=== PATIENT | female | born 1935 | race Caucasian/White ===

== ENCOUNTER 2025-10-14 08:45 | Outpatient (AMB) | payer OTHER, SELFPAY ==
--- NOTE | 2025-10-14 08:52 | A.OFFPC_ITS ---
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 Fall and Subsequent Hip Pain: The patient had a fall at a [facility] about six weeks ago. A week after the fall, the patient went to the emergency room due to hip pain. X-rays performed in the emergency room were negative for fractures. The patient has been using a cane for ambulation for the past six weeks and reports pain in the right leg when walking too much. The patient declined physical therapy. Heart Murmur: The patient has a known history of a heart murmur diagnosed by a previous physician, Dr. Ashley. The patient's llinstbf-bn-ekg believes a prior workup, including an echocardiogram, was performed, but is uncertain of the details. Records from the previous provider have been requested. Health Maintenance: The patient reports having mammograms every year and has had Pap smears in the ast, with results reportedly being okay. The patient has a history of a colonoscopy, but the year is unknown. The patient has never had a DEXA scan to screen for osteoporosis. A prior workup for diabetes was negative. The patient declines influenza vaccinations. Overactive Bladder: The patient takes trospium for an overactive bladder. 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 - Functional Status: The patient has bee n using a cane to walk for the past six weeks due to hip pain and gait instability following a fall. - Living Situation: The patient attends a senior por[facility] and was accompanied to the visit by the patient's nucargfo-sv-lns. - Driving: The patient still drives. Diagnostic Results: - Hip X-ray (approximately 5 weeks ago): No fractures identified. - Previous Mammograms: Results reported as okay. - Previous Pap smears: Results reported as okay. - Previous Diabetes workup: Negative for diabetes after an 8-hour hospital observation. Past Medical History - Heart murmur, diagnosed by a previous provider. - Overactive bladder, managed with trosp ium. - Fall approximately six weeks prior to visit, resulting in hip pain. - Denies history of breast cancer, diabe valery, hypertension, or epilepsy. - Hospitalization: Overnight stay after cholecystectomy and an 8-hour hospital stay for a diabetes workup, which was negative. Health Maintenance - Mammogram: Patient reports having jose g al mammograms with normal results. - Pap smear: Patient reports a history o f Pap smears. - Colonoscopy: Patient has had a prior c olonoscopy, though the year is unknown. - Osteoporosis Screening: Patient has ne aleks had a bone density scan; a referral for a DEXA scan was ordered. - Immunizations: Patient declines the in fluenza vaccine. [facility] Medical History (Updated 10/14/25 @ 10:08 by Pradip Shelton MD) Xerosis cutis Heart murmur Unstable gait Overactive bladder History of fall Post-menopausal Class 1 obesity Family History Mother No problems noted. Father No problems noted. Social History Housing: House Patient Tobacco Use Status: Never used Tobacco e-Cigarette/Vaping Use: Never Used service: No Current occupational status: retired Cognitive needs: Yes (cane) Hearing needs: Yes (bilateral hearing aid) Vision needs: Yes (glasses) Questionnaire Thrive Questionnaire Date Thrive assessed: 10/14/25 AUDIT C Alcohol Use Questionnaire (AUDIT-C) 1. How often do you have a drink containing alcohol?: Monthly or less 2. How many drinks containing alcohol do you have on a typical day when you are drinking?: 1 or 2 Total Score: 1 ALEXIS-7 AMB Questionnaire ALEXIS-7 Date ALEXIS - 7 assessed: 10/14/25 Source: Developed by Drs. Vernon Grider, Ce Santoro, Payam Hurley and colleagues, with an educational vish from [employer]. Review of Systems Narrative Review of Systems - Musculoskeletal: Reports right hip pain with a rubbing sensation, aggravated by ambulation. - Neurological: Reports gait instability and has been using a cane for six weeks. - Integumentary: Reports dry skin. - Genitourinary: Reports overactive bladder. - Gastrointestinal: Denies constipation, reports normal bowel movements. - Constitutional: Reports poor sleep. 10-point ROS reviewed and negative except as noted in HPI Physical exam (Primary Care) Vital Signs: Last Vital Signs Temp 98.2 F 10/14/25 09:01 Pulse 67 10/14/25 09:01 BP 170/98 H 10/14/25 09:01 Pulse Ox 97 10/14/25 09:01 Oxygen Delivery Method Room Air 10/14/25 09:01 BMI result Body Mass Index 30.5 Tobacco/Smoking Status: Tobacco use Status Tobacco use date assessed 10/14/25 10/14/25 08:53 Patient Tobacco Use Status Never used Tobacco 10/14/25 09:05 e-Cigarette/Vaping Use Never Used 10/14/25 08:53 Thrive Assessment: Date of Thrive Assessment Date Thrive assessed 10/14/25 10/14/25 08:53 Narrative Physical Exam General: Well-appearing, in no acute distress. Vital signs: Within normal limits. HEENT: Normocephalic, atraumatic. PERRLA, EOMI. Conjunctiva clear, sclera anicteric. Oropharynx clear, mucous membranes moist. TMs intact bilaterally. Neck: Supple, no lymphadenopathy, no thyromegaly, no JVD or carotid bruits. Cardiovascular: RRR, normal S1/S2, heart murmur noted. Peripheral pulses 2+ and symmetric. No edema. Respiratory: Lungs clear to auscultation bilaterally, no wheezes, rales, or rhonchi. Normal effort. Abdomen: Soft, non-tender, non-distended. Normoactive bowel sounds. No hepatosplenomegaly, no masses. Scars from gallbladder surgery noted. MSK: Full range of motion, no joint swelling or deformity. Normal gait. Uses a cane for ambulation due to hip pain. Varicose veins noted. Skin: Warm, dry, intact. No rashes, lesions, or pallor. Skin is dry. Neuro: Alert and oriented x3. Cranial nerves II-XII intact. Strength 5/5 throughout. Sensation intact. Reflexes 2+ symmetric. Normal coordination and gait. Psych: Appropriate mood and affect. Normal judgment and insight. Office Procedures Flu Questionnaire Does the patient have a severe egg allergy?: No Does the patient have severe life threatening allergies?: No Does the patient have a fever or illness today?: No Has the patient ever had Guillain-[place] Syndrome?: No Has the patient ever had any past reaction to a flu shot?: No Flu Questionnaire Does the patient have a severe egg allergy?: No Does the patient have severe life threatening allergies?: No Does the patient have a fever or illness today?: No Has the patient ever had Guillain-[place] Syndrome?: No Has the patient ever had any past reaction to a flu shot?: No Immunizations Fluarix (PF) 45 mcg (15 mcg x 3)/0.5 mL IM syringe Performing Provider: Pradip Shelton MD Performing Location: [facility] Documented (not given) by: Karen Moya CMA on 10/14/25 09:13 Reason Not Given: Allergic to Vaccine Component Fluarix (PF) 45 mcg (15 mcg x 3)/0.5 mL IM syringe Performing Provider: Pradip Shelton MD Performing Location: [facility] Documented (not given) by: Karen Moya CMA on 10/14/25 09:49 Reason Not Given: Allergic to Vaccine Ingredient Coding Level of Care Code New Pt Level 4 (53566) Diagnoses Class 1 obesity E66.811 Overactive bladder N32.81 Unstable gait R26.81 Heart murmur R01.1 Xerosis cutis L85.3 Assessment & Plan Assessment & Plan (1) Class 1 obesity: Code(s): E66.811 - Obesity, class 1 Category: Medical (2) Overactive bladder: Code(s): N32.81 - Overactive bladder Category: Medical (3) Unstable gait: Code(s): R26.81 - Unsteadiness on feet Category: Medical (4) Heart murmur: Code(s): R01.1 - Cardiac murmur, unspecified Category: Medical (5) Xerosis cutis: Code(s): L85.3 - Xerosis cutis Category: Medical Plan Consent The patient and the patient's rlbunbdd-on-dne were present and consented to the plan of care, including comprehensive lab work and a referral for a bone density scan. Patient was informed and verbally consented to the use of an ambient scribe for clinic note documentation during this visit. Plan 1. Establishment Of Care - Ordered comprehensive lab work including CBC, CMP, thyroid panel, vitamin B12, folate, vitamin D, hemoglobin A1c, lipid panel, and urinalysis to establish a baseline of the patient's health. - Will obtain medical records from the patient's previous physician, Dr. Ashley. - Scheduled a follow-up appointment in two weeks to review all results. 2. Fall With Subsequent Hip Pain And Gait Instability - Patient declined physical therapy at this time. - Initiated documentation to obtain a handicap parking placard due to difficulty walking and gait instability. - Ordered a DEXA scan to screen for osteoporosis as a potential contributing factor to fall risk. 3. Heart Murmur - Will await medical records from the patient's prior physician to review any previous workup, such as an echocardiogram, before considering further evaluation. 4. Xerosis Cutis - A moisturizing lotion will be sent to the patient's pharmacy. Discussion Notes I introduced myself to the patient and the patient's tmevvxgi-gr-cvc and discussed the plan to establish care. I explained that I would order a comprehensive set of labs to get an overall picture of the patient's health. We discussed the patient's fall from six weeks ago and ongoing difficulty with walking, and I explained the need for an osteoporosis screening with a bone scan, for which I provided a referral. The patient declined physical therapy. I informed the patient and family that we would start the process for a handicap parking placard. During the exam, I noted a heart murmur and discussed with the patient that this was a previously known finding. I communicated the importance of obtaining medical records from the prior physician to review any previous workup. For the patient's dry skin, I recommended a moisturizing lotion which I will send to the patient's pharmacy. I arranged for a follow-up visit in two weeks to review all lab and imaging results. Patient Instructions - Please go to the lab to have your blood drawn today. - A referral has been made for you to get a bone density scan at [facility]. - Please use the moisturizing lotion for your dry skin, which will be sent to [facility] pharmacy. - Our office will begin the paperwork for a handicap parking sticker for your car. - Please return to the clinic for a follow-up visit in two weeks to review your test results. Medical Decision Making The patient is an 89-year-old individual presenting to [facility] primary care. The patient's primary complaints are related to a fall six weeks ago, which has led to persistent hip pain, difficulty walking, and reliance on a cane. An emergency room visit after the fall ruled out an acute fracture, but given the patient's age and mechanism of injury, an osteoporosis screening via DEXA scan is warranted to assess for underlying bone density issues. The patient's gait instability and difficulty with ambulation justify the need for a handicap placard to improve safety and accessibility. The physical exam revealed a heart murmur, which is reportedly a known diagnosis. Before considering additional cardiac workup, it is prudent to obtain and review prior medical records from Dr. Ashley, as an echocardiogram may have already been performed. To establish a comprehensive health baseline, a full panel of labs was ordered, including a complete blood count, comprehensive metabolic panel, thyroid studies, moody vitamin levels, a hemoglobin A1c to screen for diabetes, and a lipid panel. Minor issues such as xerosis will be managed symptomatically with a prescribed moisturizer. The plan is for a close follow-up in two weeks to review all diagnostic findings and further refine the long-term management plan. Total Time Statement 30 min Total time spent caring for the patient today includes pre-visit chart review, documentation, review of laboratory and diagnostic imaging results, medication reconciliation, medically necessary evaluation, counseling on diagnoses, care coordination, ordering appropriate tests and medications, review of tests performed by other providers, reporting test results to the patient, and communication with other healthcare providers. Orders: Orders Complete Blood Count Auto Diff Today Z13.9 - Encounter for screening, unspecif ied Hepatitis B Surface Antigen Today Z13.9 - Encounter for screening, unspecified Hepatitis C Antibody Today Z13.9 - Encounter for screening, unspecified HIV Ab/Ag Today Z13.9 - Encounter for screening, unspecified UA CC w/rflx Micro + Cult Today Z13.9 - Encounter for screening, unspecified Lipid Panel Today Z13.9 - Encounter for screening, unspecified Vitamin B12 and Folate Today Z13.9 - Encounter for screening, unspecified Magnesium Today Z13.9 - Encounter for screening, unspecified XR DEXA axial skeleton Today Z78.0 - Asymptomatic menopausal state, Z91.81 - History of falling Influenza [id number] Immunization Today Z23 - Encounter for immunization Influenza [id number] Immunization Today Z23 - Encounter for immunization Syphilis Screen Today Z13.9 - Encounter for screening, unspecified Comprehensive Met. Panel Today Z13.9 - Encounter for screening, unspecified TSH reflex Free T4 Today Z13.9 - Encounter for screening, unspecified Hemoglobin A1c Today Z13.9 - Encounter for screening, unspecified Vitamin D 1,25 dihydroxy Today Z13.9 - Encounter for screening, unspecified Hepatitis B Surface Antibody Today Z13.9 - Encounter for screening, unspecified
[2025-10-14 09:01] VITALS: BP 170/98; PULSE 67; TEMP 36.8; O2SAT 97; BMI 30.5
--- OUTSIDE RECORDS SUMMARY | 2025-10-14 10:02 | XMS_ITS | Clinical Summary ---
Author Organization [facility] Address [address] [id number] Care Team Providers Care [employer] Name Role Phone Froylan Avelar MD Primary Care Provider [phone] Allergies Active Allergy Reactions Criticality Noted Date Comments Amoxicillin 07/10/2021 Donepezil 01/15/2020 edema Egg White (Egg Protein) 01/07/2020 Mupirocin Itching 12/02/2020 Other 03/10/2021 Medications Medication Sig Dispensed Refills Start Date End Date Status simvastatin (ZOCOR) tablet 20 mg 0 09/26/2020 Active trospium (SANCTURA) 20 MG tablet Take 20 mg by mouth. 0 09/13/2020 Active valsartan (DIOVAN) tablet 80 mg Take 1 tablet by mouth daily. 0 12/03/2020 Active rosuvastatin (CRESTOR) tablet 10 mg Take 10 mg by mouth. 0 12/02/2020 Active Phosphatidylserine 100 MG CAPS Take 100 mg by mouth. 0 Active famotidine (PEPCID) 20 MG tablet Take 20 mg by mouth. 0 Active aspirin 81 MG EC tablet Take 81 mg by mouth. 0 Active amLODIPine (NORVASC) tablet 5 mg Take 1 tablet by mouth daily. 0 05/08/2021 Active Family History Medical History Relation Name Comments Hypertension Mother Relation Name Status Comments Mother Social History Tobacco Use Types Packs/Day Years Used Date Smoking Tobacco: Never Smokeless Tobacco: Never Alcohol Use Standard Drinks/Week Comments Yes 4 (1 standard drink = 0.6 oz pur e alcohol) Sex and Gender Information Value Date Recorded Sex Assigned at Not on file Gender Identity Not on file Sexual Orientation Not on file Job Start Date Occupation Industry Not on file Not on file Not on file Last Filed Vital Signs Vital Sign Reading Time Taken Comments Blood Pressure - - Pulse - - Temperature - - Respiratory Rate - - Oxygen Saturation - - Inhaled Oxygen Concentration - - Weight 82.1 kg (181 lb) 07/16/2022 1:45 PM EDT Height 163 cm (5' 4.17 ) 07/16/2022 1:45 PM EDT Body Mass Index 30.9 07/16/2022 1:45 PM EDT Plan of Treatment Health Maintenance Due Date Last Done Comments Depression Screening 1948 BMI Counseling 1954 Preventative Health Evaluation 1954 DTap / Tdap / Td (1 - Tdap) 1955 Shingrix-Zoster Vaccine (1 o f 2) 1986 Fall Risk Assessment 2001 Osteoporosis Screening (DEXA Scan) 2001 Pneumococcal Vaccine (1 of 1 - PCV) 2001 RSV Adult > 60+ Yrs or (1 - 1-dose 75+ series) 2011 COVID-19 Vaccine (3 - 2024-2 6 season) 2025 04/09/2021, 03/19/2021 Influenza Vaccine (#1) 2025 Hepatitis B Vaccines Aged Out No long er eligible based on patient's age to complete this topic RSV Ped < 20 months Aged Out No longe r eligible based on patient's age to complete this topic Care Teams [employer] Relationship Specialty Start Date End Date Froylan Avelar MD [address] [place] [id number] PCP - [facility] 08/29/23
--- OUTSIDE RECORDS SUMMARY | 2025-10-14 10:02 | XMS_ITS | Clinical Summary ---
Author Organization [facility] Address [address] [place] [id number] Phone Care Team Providers Care Rodeo Clown Name Role Phone Unknown, Unknown Primary Care Provider Tamara rojas Allergies Active Allergy Reactions Criticality Noted Date Comments Amoxicillin 01/07/2020 Chrom-Vit B [id number] 2019 Donepezil 01/15/2020 edema Egg 01/07/2020 Medications cyanocobalamin, vitamin B-12, 1000 MCG tablet Take 1 tablet (1,000 mcg total) by mouth daily. 90 tablet 3 01/07/2020 Active trospium (SANCTURA) 20 mg tablet Take 20 mg by mouth 2 (two) times a day. 09/13/2020 Active rosuvastatin (CRESTOR) 10 MG tablet Take 10 mg by mouth daily. 12/02/2020 Active valsartan (DIOVAN) 80 MG tablet 12/03/2020 Active aspirin 81 MG EC tablet Take 81 mg by mouth daily. Active Active Problems Problem Noted Date Diagnosed Date Nonrheumatic aortic valve stenosis 03/14/2021 Impaired fasting glucose 12/19/2020 Memory problem 01/07/2020 Urge incontinence 01/07/2020 Other hyperlipidemia 01/07/2020 Benign essential hypertension 01/07/2020 History of breast cancer 01/07/2020 History of endometrial cancer 01/07/2020 Immunizations Immunization Administration Dates Next Due COVID-19 (Pre-09/16) Pfizer Vaccine, mRNA, PF ,03/19/2021 Family History Medical History Relation Comments Cancer Father Unknown cancer p er patient Coronary artery disease Neg Hx Diabetes mellitus Neg Hx Relation Status Comments Father Social History Tobacco Use Types Packs/Day Years Used Date Smoking Tobacco: Never Smokeless Tobacco: Never Alcohol Use Standard Drinks/Week Comments Yes 0 (1 standard drink = 0.6 oz pur e alcohol) 1-2 drinks, every other night Education Answer Date Recorded Are you interested in more education? Not on elvia e 03/22/2023 Are you concerned about learning? Not on file 03/22/2023 No 03/22/2023 No 03/22/2023 Digital Access Answer Date Recorded No 04/20/2023 No 04/20/2023 No 04/20/2023 Reliable internet access at home? Not on file 04/20/2023 Device with a working camera? Not on file Comments Unknown Sex and Gender Information Value Date Recorded Sex Assigned at Not on file Legal Sex Female 10:48 AM EDT Gender Identity Not on file Sexual Orientation Not on file Last Filed Vital Signs Vital Sign Reading Time Taken Comments Blood Pressure 180/86 03/10/2021 1:32 PM EDT Pulse 90 09/26/2020 1:53 PM EST Temperature 37.3 C (99.2 F) 09/26/2020 1:53 PM EST Respiratory Rate 16 09/26/2020 1:53 PM EST Oxygen Saturation 96% 09/26/2020 1:53 PM EST Inhaled Oxygen Concentration - - Weight 90.7 kg (200 lb) 12/19/2020 8:31 AM EST Height 156 cm (5' 1.42 ) 12/19/2020 8:31 AM EST Body Mass Index 37.28 12/19/2020 8:31 AM EST Plan of Treatment Health Maintenance Due Date Last Done Comments Adult Td,Tdap Booster 1936 DEPRESSION SCREENING 1948 PNEUMOCOCCAL VACCINES (50+ years) (1 of 1 - PCV) 1986 ZOSTER VACCINES (1 of 2) 1986 OSTEOPOROSIS SCREENING INITI AL (ONE-TIME) 2001 RSV VACCINE (1 - 1-dose 75+ series) 2011 CREATININE LEVEL 09/15/2021 09/15/2020 POTASSIUM LEVEL 09/15/2021 09/15/2020 INFLUENZA VACCINE (#1) 2025 COVID-19 VACCINE (3 - 2024-2 6 season) 2025 04/09/2021, 03/19/2021 HEPATITIS A VACCINES Aged Out No long er eligible based on patient's age to complete this topic HIB VACCINES Aged Out No longer eligi ble based on patient's age to complete this topic MENINGOCOCCAL VACCINES (ACWY) Aged Out No longer eligible based on patient's age to complete this topic MENINGOCOCCAL VACCINES (B) Aged Out N o longer eligible based on patient's age to complete this topic Medical Devices Not on file Procedures Procedure Name Priority Date/Time Associated Diagnosis Comments COMPREHENSIVE METABOLIC PANEL (CMP) Routine 09/15/2020 8:04 AM EDT Benign essential hypertension from Last 3 Months or Most Recently Relevant to Health Maintenance Results * (ABNORMAL) Comprehensive metabolic panel (09/15/2020 8:04 AM EDT) SODIUM 140 133 - 146 mmol/L [facility] POTASSIUM 4.4 3.3 - 5.1 mmol/L [facility] CHLORIDE 106 96 - 108 mmol/L [facility] CO2 25 21 - 35 mmol/L [facility] BUN 20(H) 6 - 19 mg/dL [facility] CREATININE 0.80 0.5 - 1.5 mg/dL [facility] GLUCOSE 112(H) 70 - 99 mg/dL [facility] ALBUMIN 4.1 3.9 - 4.8 g/dL [facility] TOTAL PROTEIN 6.9 6.5 - 8.0 g/dL [facility] CALCIUM 9.6 8.4 - 10.3 mg/dL [facility] ALKALINE PHOSPHATASE 94 39 - 117 U/L [facility] TOTAL BILIRUBIN 0.4 0.0 - 1.2 mg/dL [facility] AST 22 0 - 37 U/L [facility] ALT 15 0 - 40 U/L [facility] GLOBULIN 2.8 1 - 4.8 g/dL [facility] EGFR 68 >59 mL/min/1.7 3m2 [facility] Comment:Estimated glomerular filtration rate calculated using the CKD-EPI equation. ANION GAP 13 10 - 20 mmol/L [facility] Blood 09/15/2020 8:04 AM EDT 09/15/2020 8:10 AM EDT us Jameel Fernandez MD LAB BLOOD BKR ORDERABLES Final R esult [facility] [address] [place] [address] from Last 3 Months or Most Recently Relevant to Health Maintenance Insurance [employer] Care Teams [employer] Clown Relationship Specialty Start Date End Date Unknown, Unknown, PCP - General 10/15/23 Additional Source Comments The information contained in this document represents components of the legal health record. It is not the complete legal health record.[facility]
--- OUTSIDE RECORDS SUMMARY | 2025-10-14 10:02 | XMS_ITS | Data Portability ---
Author Organization [place] - [facility], Allergy Address [address] [place] [phone] Assessment Encounter Date Assessment Date Assessment LastModified by Organization Details LastModified Time 10/08/2024 10/08/2024 Patient called this morning with a question. As we talked, I suspected that one of her aids wasn't working and possibly blocked with wax. I had her come in and the right aid was blocked (stuffed!) with wax. Sounded great after I cleaned it. Left aid was almost completely blocked. Reinstructed on how to change wax guards and domes; she has extras of both. Also encouraged more consistent use of hearing aids. Warranty expires 10-28-26 Sarah Rodriguez MA, CCC-Reyes santos Not available 10/08/2024 15:45:48 Plan of Treatment Reminders Order Date Submit Date Provider Last Modified By Organization Details Last Modified Time Details Appointments None record ed. Lab None record ed. Referral None record ed. Procedures None record ed. Surgeries None record ed. Imaging None record ed. Medication Orders None record ed. Patient TargetsNo targets recorded. Patient InstructionsNo instructions recorded. Reason for Referral None Reported. 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 Medical Equipment None Reported. Allergies Allergen ID Allergen Name Allergen Category Reaction Reaction Severity Criticality Documentation Date Start Date Code Code System Note Provider Name and Address Organization Details Recorded Time 90760 amoxicill in medicatio n Not available Not available Not available 04/07/2024 723 RxNorm React ion: Itch, Low blood press ure; Not Available [facility] 4 00:57:47 Medications Name Sig Start Date Stop Date Status Note LastModified by Organization Details LastModified Time fluconazol e 150 mg tablet TAKE 1 TABLET BY MOUTH ONCE active Not Available Not Available No t Available sulfametho xazole 800 mg-trimeth oprim 160 mg tablet TAKE 1 TABLET BY MOUTH EVERY 12 HOURS FOR 5 DAYS active Not Available Not Available No t Available hydrochlor othiazide 25 mg tablet TAKE 1 TABLET BY MOUTH DAILY active Not Available Not Available No t Available Enulose 10 gram/15 mL oral solution TAKE 30 ML BY MOUTH TWICE DAILY active Not Available Not Available No t Available Arthritis Pain Reliever 650 mg tablet,ext ended release active Medicatio n ID: [id number] Br and Name: Arthritis Pain Reliever Send Method: E-Prescri bed Subs Allowed: subs OK Medica tionGener icName: Arthritis Pain Reliever Not Available Not Available Not Available solifenaci n 5 mg tablet TAKE 1 TABLET BY MOUTH EVERY DAY DIRECTED TAKE 1 TABLET BY MOUTH EVERY DAY active Not Available Not Available No t Available trospium ER 60 mg capsule,ex tended release 24 hr TAKE 1 CAPSULE BY MOUTH DAILY active Not Available Not Available No t Available Vitals None Recorded Social History None recorded. Functional Status None recorded. Mental Status None recorded. Family History Nothing Reported. Medical History No medical history recorded. Gynecological HistoryNo gynecological history recorded. Obstetrics History GPAL:G 0 P 0 0 0 0 Past Encounters Encounter ID Performer Location Encounter Start Date Encounter Closed Date Diagnosis/Indication Diagnosis SNOMED-CT Code Diagnosis ICD10 Code Diagnosis IMO Codes Diagnosis Note [id number] SARAH RODRIGUEZ MA, CCC-A [place] [facility] [address] [place] [address] KENN VELEZ [id number] 10/08/2024 12:54:19 10/09/2024 07:28:38 Sensorineural hearing loss 84807511 H90.5 Health Concerns Section Related Observation LastModified by Organization Detai ls LastModified Time None Recorded Concern Status LastModified by Organization Details LastModified Time None Recorded Advance Directives Directive None Recorded Payers Insurance Date Sequence Insurance Name Policy Number Policy Clemente Covered Member ID Clemente Member ID Guarantor Name 10/08/2024 1 [employer] (MEDICARE REPLACEMENT/ ADVANTAGE - PPO) [id number] Bridgette Clemente [id number] Bridgette Clemente OBGyn Episode No OBEpisode recorded.
== END 2025-10-14 09:32 | disposition home or self-care (01) ==
PROVIDERS: PCP Student in an Organized Health Care Education/Training Program; Visit Provider Student in an Organized Health Care Education/Training Program
DX: E66.811 Obesity, class 1 (principal); N32.81 Overactive bladder; R26.81 Unsteadiness on feet; R01.1 Cardiac murmur, unspecified; L85.3 Xerosis cutis; Z23 Encounter for immunization

== ENCOUNTER 2025-10-14 08:45 | Outpatient (REF) | payer OTHER, SELFPAY ==
[2025-10-14 13:04] LABS: MANUAL DIFF FLAG NO
[2025-10-14 13:14] LABS: Hematocrit 44.4 % (37.0-47.0); Hemoglobin 14.5 g/dl (12.0-16.0); Imm Gran Abs Auto 0.04 X10*3/uL (0.00-0.03); Imm Gran Pct Auto 0.5 % (0.0-0.4); Lymphocytes Absolute Auto 1.2 X10*3/uL (1.2-4.9); Mean Corpuscular HGB Conc 32.7 g/dl (31.0-35.0); Mean Corpuscular Hemoglobin 30.7 pg (27.0-33.0); Mean Corpuscular Volume 93.9 fL (80.0-98.0); NRBC Abs Auto 0.000 X10*3/uL (0.0-0.012); NRBC Pct Auto 0.0 /100WBC (0.0-0.2); Platelet Count 233 X10*3/uL (160-400); Red Blood Count 4.73 X10*6/uL (4.20-5.50); White Blood Count 7.9 X10*3/uL (4.8-10.8)
[2025-10-14 13:37] LABS: Appearance Urine Cloudy; Glucose Urine UA Negative (Negative); PH 5.5 (5.0-9.0); Specific Gravity - Urine 1.015 (1.005-1.025); UMIC TRIGGER UACC YES
[2025-10-14 13:39] LABS: Alanine Aminotransferase 17 U/L (0-31); Albumin Level 4.3 g/dL (3.5-5.0); Alkaline Phosphatase 127 U/L (39-117); Anion Gap 14 (12-20); Aspartate Amino Transferase 32 U/L (5-31); Blood Urea Nitrogen 19 mg/dL (9-16); Calcium 9.6 mg/dL (8.4-10.2); Carbon Dioxide 25 mmol/L (22-29); Chloride 107 mmol/L (96-108); Cholesterol 206 mg/dL (<200); Estimated Glomerular Filt Rate > 60; HDL Cholesterol 65 mg/dL (>40); Magnesium 2.3 mg/dL (1.6-2.6); Potassium 4.5 mmol/L (3.3-5.1); Sodium 141 mmol/L (135-145); Total Protein 7.2 g/dL (6.5-8.0); Triglycerides 92 mg/dL (<150)
[2025-10-14 13:58] LABS: Folate 14.3 ng/mL (> or = 4.0); Vitamin B12 213 pg/mL (200-900)
[2025-10-14 14:20] LABS: UACC Culture Trigger YES
[2025-10-15 07:50] LABS: Syphilis Screen Nonreactive (Nonreactive)
[2025-10-15 08:37] LABS: HBS Num1 0.30 mIU/mL (0-7.99); HBsAGNum1 0.35 S/CO (0.00-0.99); HIV Num 1 0.05 S/CO (0.00-0.99); Hepatitis B Surface Antigen Negative (Negative); ~HepC Num1 0.11 S/CO (0.00-0.79); ~Hepatitis B Surface Antibody NONREACTIVE (Nonreactive); ~Hepatitis C Antibody Nonreactive (Nonreactive)
[2025-10-19 15:44] LABS: VITAMIN D (1,25 OH) D3 54 pg/mL; Vit D (1,25-Dihydroxy) Total 54 pg/mL (18-72); Vitamin D (1,25 OH) D2 <8 pg/mL
== END 2025-10-14 08:46 | disposition home or self-care (01) ==
LOC: HO.HKASLDS 08:45
PROVIDERS: PCP Student in an Organized Health Care Education/Training Program; Visit Provider Student in an Organized Health Care Education/Training Program
DX: N32.81 Overactive bladder (principal); R01.1 Cardiac murmur, unspecified; E66.811 Obesity, class 1; R26.81 Unsteadiness on feet; L85.3 Xerosis cutis; Z78.0 Asymptomatic menopausal state; Z91.81 History of falling; Z28.04 Immunization not carried out because of patient allergy to vaccine or component; Z68.30 Body mass index [BMI] 30.0-30.9, adult; Z13.1 Encounter for screening for diabetes mellitus
CPT/HCPCS: 36415; 80053; 80061; 81001; 82607; 82652; 82746; 83036; 83735; 84443; 85025; 86706; 86780; 86803; 87086; 87088; 87186; 87340; 87389; 96127

== ENCOUNTER 2025-10-29 15:06 | Outpatient (AMB) | payer OTHER, SELFPAY ==
--- NOTE | 2025-10-29 15:08 | MHC.PC.OV ---
Vital Signs 10/29/25 15:13 Height 5 ft 0.75 in Weight 165 lb 4 oz BMI 31.5 BP 132/80 Blood Pressure Location Lt brachial Position Sitting Respiration 18 Pulse 103 H Pulse Source Monitor Temp 97.8 F Temp Source Oral Pulse Oximetry (%) 98 Oxygen Delivery Method Room Air Intake Visit Reasons: 2 wk - lab review Intake Note: Patient is here to discuss labs. Stator Tester Required: No Allergies egg Allergy (Mild, Verified 10/29/25 15:11) Stomach Upset Tobacco use date assessed: 10/14/25 Fall risk assessment: 1 Fall in past year Last assessed Fall Risk: 10/29/25 Dental Screening Dental Screen Date: 10/14/25 HPI HPI Comments History of Present Illness Details History of Present Illness The patient is an 89 year old female presenting for a follow-up visit to review laboratory results and discuss ongoing medical concerns. Vitamin B12 Deficiency: The patient's recent lab work showed a vitamin B12 level of 213, which is at the low end of the normal range of 200-900. This may be associated with symptoms such as fatigue, tingling in the fingers or toes, or ringing in the ears. Overactive Bladder: The patient reports a problem with her bladder, specifically experiencing nocturnal enuresis. This is an intermittent issue, as she notes there are sometimes periods of two to three days without any incidents. She has a scheduled appointment with a urologist on Saturday to address this. Asymptomatic Bacteriuria: The patient was previously prescribed antibiotics for a urinary tract infection identified on lab work. She has completed the course of antibiotics and reports feeling the same. Hyperlipidemia: The patient's non-fasting cholesterol was 206 and LDL was 123. It was noted that these values would likely be within the normal range (less than 200 and 100, respectively) if she had been fasting. Her good cholesterol (HDL) is high at 65. Dry Skin: The patient had a previous prescription for a lotion that could not be filled at [facility]. Due to her age, her skin is fragile and more vulnerable to breaks and tears. Medications: - Antibiotics for urinary tract infection (course completed) Social History: - Functional Status: The patient receives assistance with reminders for her medical appointments and is advised to move around frequently to avoid pressure ulcers. Diagnostic Results: - CBC: White blood cells, red blood cells, and hemoglobin are good. - CMP: Sodium, potassium, renal function, glucose, calcium, and magnesium are good. - Liver Function: Alkaline phosphatase was slightly elevated at 127, noted to be possibly related to a prior fall or bone injury. - Lipid Panel (non-fasting): Total cholesterol is 206, LDL is 123, and HDL is 65. - Vitamin B12: 213 (Normal range: 200-900). - Vitamin D: 54 (Normal range: 18-72). - Folate: Good. - Thyroid: Good. - Urine: Previously showed an infection. - Infectious Disease Screen: Syphilis, HIV, hepatitis B, and hepatitis C are negative. Past Medical History - History of a fall or bone injury - Urinary tract infection, recently treated with antibiotics Health Maintenance - Follow-up is scheduled in three months. [facility] Medical History (Updated 10/30/25 @ 13:03 by Pradip Shelton MD) Hyperlipidemia UTI (urinary tract infection) Vitamin B12 deficiency Xerosis cutis Heart murmur Unstable gait Overactive bladder History of fall Post-menopausal Class 1 obesity Family History Mother No problems noted. Father No problems noted. Social History (Updated 10/29/25 @ 15:12 by Sigifredo Gama CMA) Housing: House Patient Tobacco Use Status: Never used Tobacco e-Cigarette/Vaping Use: Never Used service: No Current occupational status: retired Cognitive needs: Yes (cane) Hearing needs: Yes (bilateral hearing aid) Vision needs: Yes (glasses) Questionnaire Thrive Questionnaire Date Thrive assessed: 10/14/25 ALEXIS-7 AMB Questionnaire ALEXIS-7 Date ALEXIS - 7 assessed: 10/14/25 Source: Developed by Drs. Vernon Grider, Ce Santoro, Payam Hurley and colleagues, with an educational vish from [employer]. Review of Systems Narrative Review of Systems - General: Reports possible fatigue. - Neurological: Reports possible tingling in the fingers or toes and ringing in the ears. - Genitourinary: Reports intermittent nocturnal enuresis, stating she sometimes will pee on the bed at night. - Integumentary: Reports dry skin for which a prescribed lotion was attempted. 10-point ROS reviewed and negative except as noted in HPI Physical exam (Primary Care) Vital Signs: Last Vital Signs Temp 97.8 F 10/29/25 15:13 Pulse 103 H 10/29/25 15:13 Resp 18 10/29/25 15:13 BP 132/80 10/29/25 15:13 Pulse Ox 98 10/29/25 15:13 Oxygen Delivery Method Room Air 10/29/25 15:13 BMI result Body Mass Index 31.5 Tobacco/Smoking Status: Tobacco use Status Tobacco use date assessed 10/14/25 10/29/25 15:08 Patient Tobacco Use Status Never used Tobacco 10/29/25 15:12 e-Cigarette/Vaping Use Never Used 10/29/25 15:12 Thrive Assessment: Date of Thrive Assessment Date Thrive assessed 10/14/25 10/29/25 15:08 Narrative Physical Exam General: Well-appearing, in no acute distress. Vital signs: Blood pressure is 132/80, within normal limits. HEENT: Normocephalic, atraumatic. PERRLA, EOMI. Conjunctiva clear, sclera anicteric. Oropharynx clear, mucous membranes moist. TMs intact bilaterally. Neck: Supple, no lymphadenopathy, no thyromegaly, no JVD or carotid bruits. Cardiovascular: RRR, normal S1/S2, no murmurs, rubs, or gallops. Peripheral pulses 2+ and symmetric. No edema. Respiratory: Lungs clear to auscultation bilaterally, no wheezes, rales, or rhonchi. Normal effort. Abdomen: Soft, non-tender, non-distended. Normoactive bowel sounds. No hepatosplenomegaly, no masses. MSK: Full range of motion, no joint swelling or deformity. Normal gait. Skin: Warm, dry, intact. No rashes, lesions, or pallor. Advised to use moisturizer for dry skin. Neuro: Alert and oriented x3. Cranial nerves II-XII intact. Strength 5/5 throughout. Sensation intact. Reflexes 2+ symmetric. Normal coordination and gait. Psych: Appropriate mood and affect. Normal judgment and insight. Coding Level of Care Code Est Pt Level 3 (69275) Diagnoses Overactive bladder N32.81 Vitamin B12 deficiency E53.8 UTI (urinary tract infection) N39.0 Hyperlipidemia E78.5 Xerosis cutis L85.3 Unstable gait R26.81 Assessment & Plan Assessment & Plan (1) Overactive bladder: Code(s): N32.81 - Overactive bladder Category: Medical (2) Vitamin B12 deficiency: Code(s): E53.8 - Deficiency of other specified B group vitamins Category: Medical (3) UTI (urinary tract infection): Code(s): N39.0 - Urinary tract infection, site not specified Category: Medical (4) Hyperlipidemia: Code(s): E78.5 - Hyperlipidemia, unspecified Category: Medical (5) Xerosis cutis: Code(s): L85.3 - Xerosis cutis Category: Medical (6) Unstable gait: Code(s): R26.81 - Unsteadiness on feet Category: Medical Plan Consent Patient was informed and verbally consented to the use of an ambient scribe for clinic note documentation during this visit. Plan 1. Vitamin B12 Deficiency - A prescription for vitamin B12 supplement will be sent to the pharmacy. - The patient is instructed to take one tablet every night. - Reassured the patient that B12 is a vitamin and she cannot overdose on it. 2. Overactive Bladder - The patient will be seen by a urologist on Saturday. - Management will be deferred to the urologist, who will likely address the condition with medication. 3. Dry Skin - Instructed the patient to use any [id number] moisturizer for her dry skin, since the previously prescribed lotion was unavailable. - Advised on the importance of keeping skin moisturized to prevent breaks and tears related to age-related skin fragility. 4. Asymptomatic Bacteriuria - The patient has completed her course of antibiotics. - The antibiotic will be stopped on her active medication list. Discussion Notes I reviewed the patient's recent lab results with her, noting that her CBC, renal function, glucose, and electrolytes are all within normal limits. I explained that the mild elevation in her alkaline phosphatase is likely related to a prior fall and is not concerning. We discussed her non-fasting cholesterol panel, and I explained that while the total cholesterol and LDL are slightly over the ideal range, they are likely acceptable given she had eaten, and her high HDL is a positive finding. I addressed her low vitamin B12 level of 213 and its potential to cause symptoms like fatigue or tingling, and I informed her I would be prescribing a supplement. We confirmed she completed the antibiotics for the urinary infection found on her labs. I expressed satisfaction with her improved blood pressure reading of 132/80. When she brought up her issue with nighttime bladder leakage, I advised her to discuss it with the urologist at her upcoming appointment on Saturday, as the specialist would be the best person to manage it. I also provided counseling on skin care, recommending any moisturizer for her dry skin and advising frequent repositioning to prevent pressure ulcers. I recommended a follow-up visit in three months. Patient Instructions - Take one vitamin B12 pill every night. - You are finished with the antibiotic for the urine infection, so you can stop taking it. - Discuss your bladder leakage problems with the specialist, the urology doctor, at your appointment on Saturday. - Use any type of moisturizer for your dry skin to keep it from getting fragile and tearing. - Be sure to move around often and change the position you are sitting or lying in to prevent skin sores. - Come back to the clinic for a follow-up visit in three months. Medical Decision Making The patient is an 89-year-old female here for a follow-up and review of labs. Her laboratory results were mostly reassuring; CBC, renal function, and glucose were normal, with no evidence of anemia or infection. A mild elevation in alkaline phosphatase is noted, but given the history of a recent fall, this is likely musculoskeletal in origin and not indicative of hepatobiliary disease, so I am not concerned. The non-fasting lipid panel showed borderline high total and LDL cholesterol, but these are considered acceptable given the non-fasting state and her high, protective HDL of 65. The vitamin B12 level is low at 213, which may be contributing to her non-specific symptoms of fatigue and paresthesias; therefore, supplementation is indicated. The patient confirmed completion of antibiotics for a previously identified UTI, and no further action is needed for this. Her blood pressure has improved to 132/80. She raised a new concern of nocturnal enuresis; as she has an imminent appointment with urology, it is most appropriate to defer management to the specialist. Preventative counseling was provided regarding skin care and mobility to mitigate risks of skin breakdown and pressure ulcers associated with advanced age. The overall plan is to initiate B12 supplementation and follow up in three months for continued monitoring. Total Time Statement 20 min Total time spent caring for the patient today includes pre-visit chart review, documentation, review of laboratory and diagnostic imaging results, medication reconciliation, medically necessary evaluation, counseling on diagnoses, care coordination, ordering appropriate tests and medications, review of tests performed by other providers, reporting test results to the patient, and communication with other healthcare providers. Medications: New mecobalamin (vitamin B12) place tablet under tongue and allow to dissolve for at least30 secs before swallowing 1,000 mcg sublingual BEDTIME 90 tabs 0RF Discontinued nitrofurantoin macrocrystal must administer with a meal/food Discontinued Reason: Doctor's Order 100 mg PO Q12H 5 days 10 caps 0RF
[2025-10-29 15:13] VITALS: BP 132/80; PULSE 103; RESP 18; TEMP 36.6; O2SAT 98; BMI 31.5
--- OUTSIDE RECORDS SUMMARY | 2025-10-29 19:09 | XMS_ITS | Clinical Summary ---
Author Organization [facility] Address [address] [place] [phone] Phone Care Team Providers Care Dry Kiln Feeder Name Role Phone Unknown, Unknown Primary Care Provider Tamara rojas Allergies Active Allergy Reactions Criticality Noted Date Comments Amoxicillin 01/07/2020 Chrom-Vit B 90-Pw-Je1-Dha-Epa 2019 Donepezil 01/15/2020 edema Egg 01/07/2020 Medications [...] EDT) SODIUM 140 133 - 146 mmol/L [facility] POTASSIUM 4.4 3.3 - 5.1 mmol/L [facility] CHLORIDE 106 96 - 108 mmol/L [facility] CO2 25 21 - 35 mmol/L [facility] BUN 20(H) 6 - 19 mg/dL [facility] CREATININE 0.80 0.5 - 1.5 mg/dL [facility] GLUCOSE 112(H) 70 - 99 mg/dL [facility] ALBUMIN 4.1 3.9 - 4.8 g/dL [facility] TOTAL PROTEIN 6.9 6.5 - 8.0 g/dL [facility] CALCIUM 9.6 8.4 - 10.3 mg/dL [facility] ALKALINE PHOSPHATASE 94 39 - 117 U/L [facility] TOTAL BILIRUBIN 0.4 0.0 - 1.2 mg/dL [facility] AST 22 0 - 37 U/L [facility] ALT 15 0 - 40 U/L [facility] GLOBULIN 2.8 1 - 4.8 g/dL [facility] EGFR 68 >59 mL/min/1.7 3m2 [facility] Comment:Estimated glomerular filtration rate calculated using the CKD-EPI equation. ANION GAP 13 10 - 20 mmol/L [facility] Blood 09/15/2020 8:04 AM EDT 09/15/2020 8:10 AM EDT us Jameel Fernandez MD LAB BLOOD BKR ORDERABLES Final R esult [facility] [address] [place] [address] from Last 3 Months or Most Recently Relevant to Health Maintenance Insurance [employer] RE[employer] Care Teams Dry Kiln Feeder Relationship Specialty Start Date End Date Unknown, Unknown, PCP - General 10/15/23 Additional Source Comments The information contained in this document represents components of the legal health record. It is not the complete legal health record.[facility]
--- OUTSIDE RECORDS SUMMARY | 2025-10-29 19:09 | XMS_ITS | Data Portability ---
Author Organization [place] [facility], All[facility] Address [address] [place] [phone] Assessment Encounter Date Assessment Date Assessment LastModified [...] Sensorine ural hearing loss of bilateral ears 771793769 Active 2022 Sensorineu ral hearing loss, bilateral; Note: Date Diagnosed: 06/28/2023 3:40 PM (H90.3) Not Available [facility] 02:23:45 Sensorine ural hearing loss 67357564 Active 2022 Sensorineu ral hearing loss; Location: bilateral CMS Risk: low risk CMS Treatment: new problem (to examiner): additional workup planned Not Available [facility] 4 02:23:46 Problem Notes None recorded. Medical Equipment None Reported. Allergies Allergen ID Allergen Name Allergen Category Reaction Reaction Severity Criticality Documentation Date Start Date Code Code System Note Provider Name and Address Organization Details Recorded Time 52227 amoxicill in medicatio n Not available Not available Not available 04/07/2024 723 RxNorm React ion: Itch, Low blood press ure; Not Available [facility] 4 00:57:47 Medications Name Sig Start [...] tablet,ext ended release active Medicatio n ID: [id number] Br and Name: Arthritis Pain Reliever Send [...] ICD10 Code Diagnosis IMO Codes Diagnosis Note [id number] SARAH RODRIGUEZ MA, CCC-A [place] [address] [place] [address] KENN VELEZ [id number] 10/08/2024 12:54:19 10/09/2024 07:28:38 Sensorineural hearing loss 24501688 H90.5 Health Concerns Section Related Observation LastModified by Organization Detai ls LastModified Time None Recorded Concern Status LastModified by Organization Details LastModified Time None Recorded Advance Directives Directive None Recorded Payers Insurance Date Sequence Insurance Name Policy Number Policy Clemente Covered Member ID Clemente Member ID Guarantor Name 10/08/2024 1 [employer] (MEDICARE REPLACEMENT/ ADVANTAGE - PPO) [id number] Bridgette Clemente [id number] Bridgette Clemente OBGyn Episode No OBEpisode recorded.
--- OUTSIDE RECORDS SUMMARY | 2025-10-29 19:09 | XMS_ITS ---
Author Name [facility] Organization Unknown Care Team Organization Name Specialty Phone Email Start Date End Da audie [facility] Jameel Fernandez Primary Care 10/02/2022 024
--- OUTSIDE RECORDS SUMMARY | 2025-10-29 19:09 | XMS_ITS | Clinical Summary ---
Author Organization [facility] Prior to 04/24/25 Address [address] [place] [address] Care Team Providers Care Rehabilitation Services Counselor Name Role Phone Froylan Avelar MD Primary Care Provider [phone] Allergies Active Allergy Reactions Criticality Noted Date [...] age to complete this topic Care Teams Rehabilitation Services Counselor Relationship Specialty Start Date End Date Froylan Avelar MD [address] [place] [id number] PCP - General Hospitalist Medicine 08/29/23
== END 2025-10-29 15:33 | disposition home or self-care (01) ==
LOC: HO.HMCFMS 15:06
PROVIDERS: PCP Student in an Organized Health Care Education/Training Program; Visit Provider Student in an Organized Health Care Education/Training Program
DX: N32.81 Overactive bladder (principal); E53.8 Deficiency of other specified B group vitamins; N39.0 Urinary tract infection, site not specified; E78.5 Hyperlipidemia, unspecified; L85.3 Xerosis cutis; R26.81 Unsteadiness on feet